=== PATIENT | male | born 1950 | race Caucasian/White ===

== ENCOUNTER 2023-08-31 15:47 | Inpatient (IN) | payer MEDICARE ==
[~2023-08-31] VITALS: Ht 175.3 cm; Wt 59.4 kg
[2023-08-31] MEDS ORDERED: FOLI1TAB27 PO (16:05)
[2023-08-31] MEDS ORDERED: ACET-73 PO (16:05)
[2023-08-31] MEDS ORDERED: DIVA-78 PO (16:05)
[2023-08-31] MEDS ORDERED: LORA5SOL38 PO (16:05)
[2023-08-31] MEDS ORDERED: OMEG1CAP74 PO (16:05)
[2023-08-31] MEDS ORDERED: MULT-594 PO (16:05)
[2023-08-31] MEDS ORDERED: FENO145T21 PO (16:05)
[2023-08-31] MEDS ORDERED: GUAI-717 PO (16:05)
[2023-08-31] MEDS ORDERED: ASPI81TA31 PO (16:05)
[2023-08-31 17:27] LABS: BASOPHILS % (AUTO) 0.6 % (0.0-2.0); EOSINOPHILS # (AUTO) 0.1 K/uL (0.0-0.7); EOSINOPHILS % (AUTO) 0.8 % (0.0-7.0); HEMATOCRIT 42.1 % (36.7-47.1); HEMOGLOBIN 14.6 g/dL (12.5-16.3); LYMPHOCYTES # (AUTO) 2.2 K/uL (0.8-4.8); LYMPHOCYTES % (AUTO) 29.8 % (20.5-51.5); MEAN CORPUSCULAR HEMOGLOBIN 31.1 uug (23.8-33.4); MEAN CORPUSCULAR HGB CONC 35 g/dL (32.5-36.3); MEAN CORPUSCULAR VOLUME 89.6 fL (73.0-96.2); MONOCYTES # (AUTO) 0.5 K/uL (0.1-1.30); MONOCYTES % (AUTO) 6.3 % (0.0-11.0); NEUTROPHILS # (AUTO) 4.6 K/uL (1.8-8.9); NEUTROPHILS % (AUTO) 62.5 % (38.5-71.5); PLATELET COUNT (AUTO) 275 K/uL (152-348); RED BLOOD CELL COUNT(AUTO) 4.69 MIL/uL (4.06-5.63); RED CELL DISTRIBUTION WIDTH 12.8 % (12.1-16.2); WHITE BLOOD COUNT (AUTO) 7.4 K/uL (3.6-10.2)
[2023-08-31 17:33] LABS: DIFFERENTIAL COMMENT 1
[2023-08-31 17:37] LABS: CALCIUM 9.8 mg/dL (8.5-10.1); CARBON DIOXIDE 23 mmol/L (21-32); CHLORIDE 105 mmol/L (98-107); CREATININE 1.3 mg/dL (0.6-1.3); GLUCOSE 120 mg/dL (74-106); POTASSIUM 3.8 mmol/L (3.5-5.1); SODIUM SERUM 143 mmol/L (136-145); UREA NITROGEN, BLOOD 16 mg/dL (7-18)
[2023-08-31 17:49] LABS: THYROID STIMULATING HORMONE 2.036 mIU/mL (0.358-3.740)
[2023-08-31 17:54] LABS: ALANINE AMINOTRANSFERASE 32 U/L (16-63); ALKALINE PHOSPHATASE 55 U/L (50-136); ASPARTATE AMINOTRANSFERASE 20 U/L (15-37); BILIRUBIN,DIRECT 0.1 mg/dL (0.0-0.2); BILIRUBIN,TOTAL 0.3 mg/dL (0.2-1.0); TOTAL PROTEIN, SERUM 7.6 g/dL (6.4-8.2)
[2023-08-31 17:55] LABS: ACETAMINOPHEN < 10.0 ug/mL (10-30)
[2023-08-31 18:01] LABS: AMMONIA 32 umol/L (11-32)
[2023-08-31 18:02] LABS: ETHANOL < 3 MG/DL (0-10)
[2023-08-31] MEDS ORDERED: LORAZEPAM 2 MG/1 ML VIAL ONE (19:23)
[2023-08-31] MEDS ORDERED: diphenhydrAMINE 50 MG/1 ML VIAL ONE (19:24)
[2023-08-31] MEDS: LORAZEPAM 2 MG/1 ML VIAL IM ONE (19:33)
[2023-08-31] MEDS: diphenhydrAMINE 50 MG/1 ML VIAL IM ONE (19:33)
[2023-08-31] MEDS ORDERED: MAGNESIUM HYDROXIDE 30 ML LIQUID UDC PO PRN (23:30)
[2023-08-31] MEDS ORDERED: MAG HYDROX/AL HYDROX/SIMETH 30 ML LIQUID UDC PO PRN (23:30)
[2023-09-01 00:15] VITALS: BP 140/68; TEMP 98.2; O2SAT 96
[2023-09-01] MEDS: BLOOD SUGAR DIAGNOSTIC 1 EACH STRIP VI ONE (00:21)
[2023-09-01] MEDS: TEMAZEPAM 7.5 MG CAPSULE PO PRN (00:52)
[2023-09-01 07:30] VITALS: BP 114/52; TEMP 98; O2SAT 98
[2023-09-01] MEDS ORDERED: risperiDONE-M 0.5 MG TAB.RAPDIS PO SCH (09:00)
[2023-09-01] MEDS: RISPERIDONE-M 0.25 MG TAB.RAPDIS PO SCH (09:22)
[2023-09-01] MEDS: OXCARBAZEPINE 150 MG TABLET PO SCH (09:31)
[2023-09-01] MEDS: LORAZEPAM 0.5 MG TABLET PO PRN (14:38)
[2023-09-01] MEDS: SERTRALINE HCL 50 MG TABLET PO SCH (14:38)
[2023-09-01 15:00] VITALS: BP 140/59; TEMP 98; O2SAT 98
[2023-09-01 20:00] VITALS: BP 146/83; TEMP 98; O2SAT 97
[2023-09-01] MEDS: FENOFIBRATE NANOCRYSTALLIZED 145 MG TABLET PO SCH (20:41)
[2023-09-01 20:45] LABS: *BILIRUBIN,URIN NEGATIVE (NEGATIVE); *BLOOD, URINE NEGATIVE (NEGATIVE); *CLARITY,URINE CLEAR (CLEAR); *COLOR,URINE YELLOW (YELLOW); *KETONES,URINE NEGATIVE (NEGATIVE); *PROTEIN,URINE NEGATIVE (NEGATIVE); *UROBILINOGEN,URINE 0.2 E.U./dl (NORMAL); LEUKOCYTE ESTERASE ,URINE NEGATIVE (NEGATIVE); NITRITE, URINE NEGATIVE (NEGATIVE); UGLUCOSE NEGATIVE (NEGATIVE)
[2023-09-01 21:04] LABS: *AMPHETAMINE, URINE NEGATIVE (NEGATIVE); *BARBITURATE, URINE NEGATIVE (NEGATIVE); *BENZODIAZEPINE, URINE NEGATIVE (NEGATIVE); *CANNABINOID, URINE NEGATIVE (NEGATIVE); *COCCAINE, URINE NEGATIVE (NEGATIVE); *OPIATE, URINE NEGATIVE (NEGATIVE); *PHENCYCLIDINE SCREEN,URINE NEGATIVE (NEGATIVE)
[2023-09-01 21:08] LABS: FENTANYL, URINE NEGATIVE (NEGATIVE)
[2023-09-02 07:55] VITALS: BP 136/63; TEMP 98; O2SAT 98
[2023-09-02] MEDS: ASPIRIN 81 MG TAB.CHEW PO SCH (10:45)
[2023-09-02] MEDS: MULTIVIT, IRON, MIN NO. 8, FA TABLET PO SCH (10:45)
[2023-09-02] MEDS: FOLIC ACID 1 MG TABLET PO SCH (10:45)
[2023-09-02 15:09] VITALS: BP 151/76; TEMP 98; O2SAT 98
[2023-09-02 20:00] VITALS: BP 116/67; TEMP 98.2; O2SAT 98
[2023-09-03 07:54] VITALS: BP 138/84; TEMP 98.1; O2SAT 96
[2023-09-03 16:12] VITALS: BP 138/57; TEMP 98; O2SAT 97
[2023-09-03 20:20] VITALS: BP 117/63; TEMP 98.2; O2SAT 98
[2023-09-04 09:20] VITALS: BP 103/65; TEMP 98; O2SAT 98
[2023-09-04 16:01] VITALS: BP 137/78; TEMP 98; O2SAT 98
[2023-09-04 20:00] VITALS: BP 131/73; TEMP 98.3; O2SAT 97
[2023-09-05 08:19] VITALS: BP 101/59; TEMP 98; O2SAT 98
[2023-09-05 16:32] VITALS: BP 115/63; TEMP 98; O2SAT 98
[2023-09-05 20:00] VITALS: BP 136/77; TEMP 98.5; O2SAT 98
[2023-09-06 07:49] VITALS: BP 105/51; TEMP 98; O2SAT 94
[2023-09-06] MEDS: ACETAMINOPHEN 325 MG TABLET PO PRN (09:07)
[2023-09-06 15:45] VITALS: BP 111/66; TEMP 98; O2SAT 98
[2023-09-07 08:07] VITALS: BP 90/51; TEMP 98.2; O2SAT 96
[2023-09-07] MEDS: OXCARBAZEPINE 150 MG TABLET PO SCH (13:25)
[2023-09-07 15:43] VITALS: BP 120/65; TEMP 98.2; O2SAT 96
[2023-09-07 19:47] VITALS: BP 121/63; TEMP 97.9; O2SAT 95
[2023-09-07] MEDS: OXCARBAZEPINE 300 MG TABLET PO SCH (20:03)
[2023-09-08 08:01] VITALS: BP 122/69; TEMP 98.2; O2SAT 98
[2023-09-08 15:16] VITALS: BP 134/48; TEMP 98.2; O2SAT 99
[2023-09-08 19:55] VITALS: BP 130/58; TEMP 98.1; O2SAT 98
[2023-09-09 07:30] VITALS: BP 132/60; TEMP 98.2; O2SAT 96
[2023-09-09 15:59] VITALS: BP 120/65; TEMP 98; O2SAT 93
[2023-09-09 20:52] VITALS: BP 134/64; TEMP 98.3; O2SAT 96
[2023-09-10 07:28] LABS: ALANINE AMINOTRANSFERASE 29 U/L (16-63); ALBUMIN 3.3 g/dL (3.4-5.0); ALKALINE PHOSPHATASE 44 U/L (50-136); ASPARTATE AMINOTRANSFERASE 11 U/L (15-37); BILIRUBIN,TOTAL 0.3 mg/dL (0.2-1.0); CALCIUM 8.8 mg/dL (8.5-10.1); CARBON DIOXIDE 27 mmol/L (21-32); CHLORIDE 105 mmol/L (98-107); CREATININE 1.2 mg/dL (0.6-1.3); GLUCOSE 87 mg/dL (74-106); POTASSIUM 3.9 mmol/L (3.5-5.1); SODIUM SERUM 138 mmol/L (136-145); TOTAL PROTEIN, SERUM 6.1 g/dL (6.4-8.2); UREA NITROGEN, BLOOD 21 mg/dL (7-18)
[2023-09-10 07:37] VITALS: BP 121/56; TEMP 98.4; O2SAT 98
[2023-09-10 16:29] VITALS: BP 114/69; TEMP 98.2; O2SAT 98
[2023-09-10 20:00] VITALS: BP 125/89; TEMP 98; O2SAT 97
[2023-09-11 08:05] VITALS: BP 115/54; TEMP 98; O2SAT 98
[2023-09-11 16:43] VITALS: BP 115/67; TEMP 98; O2SAT 98
[2023-09-11 19:50] VITALS: BP 110/60; TEMP 98.2; O2SAT 97
[2023-09-12 07:36] VITALS: BP 135/53; TEMP 98; O2SAT 98
[2023-09-12 16:06] VITALS: BP 136/73; TEMP 98; O2SAT 98
[2023-09-12 19:57] VITALS: BP 130/70; TEMP 98.1; O2SAT 96
[2023-09-13 07:39] VITALS: BP 136/68; TEMP 98.2; O2SAT 98
[2023-09-13 15:27] VITALS: BP 119/68; TEMP 98; O2SAT 98
[2023-09-13 20:30] VITALS: BP 128/70; TEMP 97.8; O2SAT 96
[2023-09-14 07:48] VITALS: BP 122/61; TEMP 98.4; O2SAT 98
[2023-09-14 15:24] VITALS: BP 90/48; TEMP 98.4; O2SAT 98
[2023-09-15 08:55] VITALS: BP 159/59; TEMP 98; O2SAT 98
[2023-09-15 20:30] VITALS: BP 145/58; TEMP 97.8; O2SAT 95
[2023-09-16 07:30] VITALS: BP 136/61; TEMP 98.4; O2SAT 98
[2023-09-16 15:07] VITALS: BP 126/77; TEMP 98; O2SAT 98
[2023-09-16 20:00] VITALS: BP 140/77; TEMP 97.9; O2SAT 95
[2023-09-17 07:53] VITALS: BP 106/70; TEMP 97.8; O2SAT 98
[2023-09-17 16:44] VITALS: BP 158/100; TEMP 97.9; O2SAT 99
[2023-09-17 20:00] VITALS: BP 100/81; TEMP 98.2; O2SAT 96
[2023-09-18 08:39] VITALS: BP 135/91; TEMP 98.3; O2SAT 98
[2023-09-18 15:59] VITALS: BP 123/71; TEMP 98.2; O2SAT 98
[2023-09-18 19:59] VITALS: BP 127/77; TEMP 98.3; O2SAT 95
[2023-09-19 07:51] VITALS: BP 107/53; TEMP 97.8; O2SAT 98
== END 2023-09-19 13:01 | DRG 885 ==
LOC: ER 15:52 → GPS 23:08
PROVIDERS: ADMIT Psychiatry & Neurology Psychosomatic Medicine; ATTEND Internal Medicine
DX: F29 Unspecified psychosis not due to a substance or known physiological condition (principal); F02.811 Dementia in other diseases classified elsewhere, unspecified severity, with agitation; F02.83 Dementia in other diseases classified elsewhere, unspecified severity, with mood disturbance; Z78.1 Physical restraint status; G30.9 Alzheimer's disease, unspecified; F43.10 Post-traumatic stress disorder, unspecified; F10.10 Alcohol abuse, uncomplicated; E78.5 Hyperlipidemia, unspecified; I25.10 Atherosclerotic heart disease of native coronary artery without angina pectoris; M15.9 Polyosteoarthritis, unspecified; R45.850 Homicidal ideations
CPT/HCPCS: 36415; 84443; 84484; 85025; 85730; 93005; G0480; J1200; J2060